=== PATIENT | male | born 1960 ===

== ENCOUNTER 2016-04-20 15:52 | Emergency (ER) | payer OTHER ==
[2016-04-20 16:02] VITALS: BP 149/89; PULSE 85; RESP 20; TEMP 98.2; O2SAT 100
--- NOTE | 2016-04-20 16:59 | ED PDOC ---
HPI: Male Pain Time Seen by Provider: 04/20/16 16:27 Chief Complaint (Nursing): Abdominal Pain Chief Complaint (Provider): urinary retention History Per: Patient History/Exam Limitations: no limitations Onset/Duration Of Symptoms: Days (5) Current Symptoms Are (Timing): Still Present Severity: Moderate Quality Of Discomfort: "Pain" Associated Symptoms: Urinary Symptoms. denies: Fever, Nausea, Vomiting, Diarrhea Additional History Per: Patient Additional Complaint(s): The pt is a 56yo male, presents to the ED for evaluation due to urinary retention. Pt reports he had a romano catheter placed while visiting this facility on 04/16/16. Pt reports he was sent home with a leg bag and instructions to follow up with a urologist. Pt reports he did not follow up due to a payment being required. Pt reports he went to the clinic today due to very little urine output over the past 24hrs. He states feeling distended again with associated back pain. Pt normal stool output and denies any fever, nausea, vomiting or diarrhea. Pt also denies presence of blood in his urine bag. Pt states he was instructed by clinic to present to the ED for further evaluation. At present, he offers no additional medical complaints. PMD: [facility] Past Medical History Reviewed: Historical Data, Nursing Documentation, Vital Signs Vital Signs: Last Vital Signs Temp 98.2 F 04/20/16 15:59 Pulse 85 04/20/16 15:59 Resp 20 04/20/16 15:59 BP 149/89 04/20/16 15:59 Pulse Ox 100 04/20/16 15:59 - Medical History PMH: No Chronic Diseases Denies: Chronic Kidney Disease - Surgical History Surgical History: No Surg Hx - Family History Family History: States: Unknown Family Hx - Living Arrangements Living Arrangements: With Family - Social History Current smoker - smoking cessation education provided: No Alcohol: None Drugs: Denies - Home Medications Home Medications: Ambulatory Orders Medication Instructions Recorded Ciprofloxacin HCl [Cipro] 250 mg PO BID #14 tab 04/20/16 Naproxen [Naprosyn] 1 tab PO BID PRN #60 tab 04/20/16 Tamsulosin [Flomax] 0.4 mg PO DAILY #30 cap 04/20/16 - Allergies Allergies/Adverse Reactions: Allergies Allergy/AdvReac Type Severity Reaction Status Date / Time No Known Allergies Allergy Verified 04/16/16 17:35 Review of Systems ROS Statement: Except As Marked, All Systems Reviewed And Found Negative Constitutional: Negative for: Fever Gastrointestinal: Positive for: Abdominal Pain (distention). Negative for: Nausea, Vomiting Genitourinary Male: Positive for: Other (urinary retention) Physical Exam - Reviewed Nursing Documentation Reviewed: Yes Vital Signs Reviewed: Yes - Physical Exam Appears: Positive for: Well, Non-toxic, No Acute Distress Head Exam: Positive for: ATRAUMATIC, NORMAL INSPECTION, NORMOCEPHALIC Skin: Positive for: Normal Color Eye Exam: Positive for: Normal appearance Neck: Positive for: Normal Cardiovascular/Chest: Positive for: Regular Rate, Rhythm Respiratory: Positive for: Normal Breath Sounds. Negative for: Respiratory Distress Gastrointestinal/Abdominal: Positive for: Normal Exam, Soft, Tenderness (mild tenderness to palpation of suprapubic region), Distended (soft distention) Male Genital Exam: Positive for: other (Romano bag in place. No lesions, erythema or exudate at the meatus. Appears to be sediment inside romano bag.) Back: Negative for: L CVA Tenderness, R CVA Tenderness Neurologic/Psych: Positive for: Alert, Oriented (x3) - ECG O2 Sat by Pulse Oximetry: 100 (RA) Pulse Ox Interpretation: Normal Medical Decision Making Medical Decision Making: Time: 1640 Impression: romano cath malfunction, urinary retention Plan: -- urine culture -- urine dip -- urinalysis --Reassess Scribe Attestation: Documented by Maile Thompson acting as a scribe for Elena Mendoza MD. Provider Attestation: All medical record entries made by the Scribe were at my direction and personally dictated by me. I have reviewed the chart and agree that the record accurately reflects my personal performance of the history, physical exam, medical decision making, and the department course for this patient. I have also personally directed, reviewed, and agree with the discharge instructions and disposition. Disposition - Clinical Impression Clinical Impression: Urinary retention - Disposition Referrals: Shayne Mccullough MD [Medical Doctor] - Gerald Eid MD [Medical Doctor] - Disposition: Routine/Home Disposition Time: 18:00 Condition: IMPROVED Prescriptions: Ciprofloxacin HCl [Cipro] 250 mg PO BID #14 tab Tamsulosin [Flomax] 0.4 mg PO DAILY #30 cap Naproxen [Naprosyn] 1 tab PO BID PRN #60 tab PRN Reason: Pain Instructions: Romano Catheter Placement and Care (ED), Urinary Leg Bag (GEN) Print Language: AZERI
[2016-04-20 18:06] LABS: RBC URINE 1184 /hpf (0-3); URINE BILIRUBIN NEGATIVE (NEGATIVE); URINE BLOOD LARGE (NEGATIVE); URINE COLOR YELLOW (YELLOW); URINE GLUCOSE (UA) NEG (Normal); URINE KETONE NEGATIVE (NEGATIVE); URINE LEUKOCYTE ESTERASE SMALL Leu/uL (Negative); URINE PROTEIN 100 mg/dL (NEGATIVE); URINE UROBILINOGEN 0.2-1.0 mg/dL (0.2-1.0); WBC URINE 11 /hpf (0-5)
[2016-04-20 18:09] LABS: URINE BACTERIA SMALL (<OCC)
== END 2016-04-20 18:25 | disposition home or self-care (01) ==
LOC: H.ER 15:52
DX: R33.9 Retention of urine, unspecified (principal); R10.9 Unspecified abdominal pain

== ENCOUNTER 2017-09-29 03:40 | Emergency (ER) | payer SELFPAY ==
[2017-09-29 03:59] VITALS: BP 135/83; RESP 18; TEMP 98.2
--- NOTE | 2017-09-29 04:06 | ED PDOC ---
HPI: Male Pain Time Seen by Provider: 09/29/17 04:04 Chief Complaint (Nursing): Male Genitourinary Chief Complaint (Provider): DIFFICULTY URINATING History Per: Patient (57 Y/O MALE HERE FOR EVALUATION OF DIFFICULTY URINATING. DENIES ANY FEVERS/CHILLS/HEMATURIA. UNABLE TO URINATE FOR 5 HOURS.) Past Medical History Reviewed: Historical Data, Nursing Documentation, Vital Signs Vital Signs: Last Vital Signs Temp 98.2 F 09/29/17 03:57 Pulse 112 H 09/29/17 03:57 Resp 18 09/29/17 03:57 BP 135/83 09/29/17 03:57 Pulse Ox 95 09/29/17 03:57 - Medical History PMH: Denies: Chronic Kidney Disease - Family History Family History: States: Unknown Family Hx - Home Medications Home Medications: Ambulatory Orders Medication Instructions Recorded Ciprofloxacin HCl [Cipro] 250 mg PO BID #14 tab 04/20/16 Naproxen [Naprosyn] 1 tab PO BID PRN #60 tab 04/20/16 Tamsulosin [Flomax] 0.4 mg PO DAILY #30 cap 04/20/16 Ciprofloxacin HCl [Cipro] 500 mg PO BID #14 tablet 09/29/17 Tamsulosin HCl [Flomax] 0.4 mg PO DAILY #7 cap.er.24h 09/29/17 - Allergies Allergies/Adverse Reactions: Allergies Allergy/AdvReac Type Severity Reaction Status Date / Time No Known Allergies Allergy Verified 04/16/16 17:35 Review of Systems ROS Statement: Except As Marked, All Systems Reviewed And Found Negative Physical Exam - Reviewed Nursing Documentation Reviewed: Yes Vital Signs Reviewed: Yes - Physical Exam Appears: Positive for: Well, Non-toxic, No Acute Distress Head Exam: Positive for: ATRAUMATIC, NORMAL INSPECTION, NORMOCEPHALIC Skin: Positive for: Normal Color, Warm, DRY Eye Exam: Positive for: EOMI, Normal appearance, PERRL ENT: Positive for: Normal ENT Inspection Neck: Positive for: Normal, Painless ROM Cardiovascular/Chest: Positive for: Regular Rate, Rhythm Respiratory: Positive for: CNT, Normal Breath Sounds Gastrointestinal/Abdominal: Positive for: Normal Exam, Soft Back: Positive for: Normal Inspection Extremity: Positive for: Normal ROM Neurologic/Psych: Positive for: Alert, Oriented - Laboratory Results Urine dip results: Positive for: Blood. Negative for: Leukocyte Esterase, Nitrate, Ketones, Glucose, Bilirubin - ECG O2 Sat by Pulse Oximetry: 95 - Progress ED Course And Treament: VERBAL CONSENT OBTAINED PRIOR TO NETTLES CATHETER PLACEMENT. 1000 CC URINE INITIALLY FROM PLACEMENT OF CATHETER. Disposition - Clinical Impression Clinical Impression: Urinary retention - Patient ED Disposition Is Patient to be Admitted: Yes - Disposition Referrals: Irving Romero MD [Medical Doctor] - Disposition: Routine/Home Disposition Time: 04:40 Condition: FAIR Prescriptions: Ciprofloxacin HCl [Cipro] 500 mg PO BID #14 tablet Tamsulosin HCl [Flomax] 0.4 mg PO DAILY #7 cap.er.24h Instructions: Urinary Retention (DC) Forms: [facility] (Vietnamese) Print Language: GHANAIAN
[2017-09-29 04:59] LABS: URINE BACTERIA RARE (<OCC); URINE BILIRUBIN NEGATIVE (NEGATIVE); URINE BLOOD LARGE (NEGATIVE); URINE CLARITY CLEAR (Clear); URINE COLOR STRAW (YELLOW); URINE GLUCOSE (UA) NEG (Normal); URINE LEUKOCYTE ESTERASE NEG Leu/uL (Negative); URINE PROTEIN NEGATIVE (NEGATIVE); URINE UROBILINOGEN 0.2-1.0 mg/dL (0.2-1.0)
[2017-09-29 05:12] VITALS: PULSE 97; O2SAT 98
== END 2017-09-29 05:33 | disposition home or self-care (01) ==
LOC: H.ER 03:40
DX: R33.9 Retention of urine, unspecified (principal)

== ENCOUNTER 2017-11-07 02:04 | Emergency (ER) | payer MEDICAID ==
[2017-11-07 02:14] VITALS: RESP 18
--- NOTE | 2017-11-07 03:46 | ED PDOC ---
HPI: Male Pain Time Seen by Provider: 11/07/17 02:15 Chief Complaint (Nursing): Male Genitourinary Chief Complaint (Provider): Male Genitourinary History Per: Patient History/Exam Limitations: no limitations Onset/Duration Of Symptoms: Hrs Current Symptoms Are (Timing): Still Present Additional Complaint(s): Rob Crisostomo is a 57 year old male with a past medical history of prostatic hypertrophy who is presenting to the ED for evaluation of urinary retention. Patient was seen in the ED yesterday for the same complaint but didnt want indwelling Wren catheter. He states that he went home and has not passed any urine in the last 10 hours associated with suprapubic pain. Patient offers no other medical complaints at this time. PMD: none provided Past Medical History Reviewed: Historical Data, Nursing Documentation, Vital Signs Vital Signs: Last Vital Signs Temp 98.3 F 11/07/17 02:10 Pulse 111 H 11/07/17 02:10 Resp 18 11/07/17 02:10 BP 164/100 H 11/07/17 02:10 Pulse Ox 98 11/07/17 02:10 - Medical History PMH: Denies: Chronic Kidney Disease Other PMH: BPH - Surgical History Surgical History: No Surg Hx - Family History Family History: States: Unknown Family Hx - Social History Current smoker - smoking cessation education provided: Yes Alcohol: Social Drugs: Denies - Home Medications Home Medications: Ambulatory Orders Medication Instructions Recorded Ciprofloxacin HCl [Cipro] 250 mg PO BID #14 tab 04/20/16 RX: Naproxen [Naprosyn] 1 tab PO BID PRN #60 tab 04/20/16 Tamsulosin [Flomax] 0.4 mg PO DAILY #30 cap 04/20/16 Ciprofloxacin HCl [Cipro] 500 mg PO BID #14 tablet 09/29/17 Tamsulosin HCl [Flomax] 0.4 mg PO DAILY #7 cap.er.24h 09/29/17 - Allergies Allergies/Adverse Reactions: Allergies Allergy/AdvReac Type Severity Reaction Status Date / Time No Known Allergies Allergy Verified 04/16/16 17:35 Review of Systems ROS Statement: Except As Marked, All Systems Reviewed And Found Negative Gastrointestinal: Positive for: Abdominal Pain Genitourinary Male: Positive for: Other (urinary retention) Physical Exam - Reviewed Nursing Documentation Reviewed: Yes Vital Signs Reviewed: Yes - Physical Exam Appears: Positive for: Non-toxic, No Acute Distress Head Exam: Positive for: ATRAUMATIC, NORMAL INSPECTION, NORMOCEPHALIC Skin: Positive for: Normal Color, Warm, DRY Eye Exam: Positive for: EOMI, Normal appearance, PERRL ENT: Positive for: Normal ENT Inspection Neck: Positive for: Normal, Painless ROM Cardiovascular/Chest: Positive for: Regular Rate, Rhythm. Negative for: Murmur Respiratory: Positive for: Normal Breath Sounds. Negative for: Respiratory Distress Gastrointestinal/Abdominal: Positive for: Soft, Tenderness (suprapubic ), Distended Back: Positive for: Normal Inspection Extremity: Positive for: Normal ROM. Negative for: Deformity, Swelling Neurologic/Psych: Positive for: Alert, Oriented. Negative for: Motor/Sensory Deficits - ECG O2 Sat by Pulse Oximetry: 98 (RA) Pulse Ox Interpretation: Normal Medical Decision Making Medical Decision Making: Time: 2:15 A/P: 57 year old male with urinary retention secondary to BPH 3:40 Patient reports that he feels a lot better with improvement in symptoms after Wren catheter placement. Advised follow up with Dr. Romero. Scribe Attestation: Documented by Raina Prince, acting as a scribe for Yousuf Altamirano MD. Provider Scribe Attestation: All medical record entries made by the Scribe were at my direction and personally dictated by me. I have reviewed the chart and agree that the record accurately reflects my personal performance of the history, physical exam, medical decision making, and the department course for this patient. I have also personally directed, reviewed, and agree with the discharge instructions and disposition. Disposition - Clinical Impression Clinical Impression: Urinary retention - Disposition Referrals: Irving Romero MD [Medical Doctor] - Disposition: Routine/Home Disposition Time: 04:00 Condition: STABLE Instructions: Wren Catheter, Male Forms: [employer] (Mexican)
[2017-11-07 04:03] VITALS: BP 127/79; PULSE 83; TEMP 97.7
[2017-11-10 21:35] VITALS: O2SAT 98
== END 2017-11-07 04:06 | disposition home or self-care (01) ==
LOC: H.ER 02:04
DX: R33.8 Other retention of urine (principal)

== ENCOUNTER 2017-11-25 04:50 | Emergency (ER) | payer MEDICAID ==
--- NOTE | 2017-11-25 05:34 | ED PDOC ---
HPI: Male Pain Time Seen by Provider: 11/25/17 05:04 Chief Complaint (Nursing): Male Genitourinary Chief Complaint (Provider): needs new romano bag History Per: Patient (57 y/o male here requesting new romano catheter bag. Patient was seen in ED 11/07/2017 for urinary retention and had romano catheter placed at that time.) Past Medical History Reviewed: Historical Data, Nursing Documentation, Vital Signs Vital Signs: Last Vital Signs Temp 98.6 F 11/25/17 04:58 Pulse 80 11/25/17 04:58 Resp 20 11/25/17 04:58 BP 124/87 11/25/17 04:58 Pulse Ox 99 11/25/17 04:58 - Medical History PMH: Denies: Chronic Kidney Disease - Family History Family History: States: No Known Family Hx - Home Medications Home Medications: Ambulatory Orders Medication Instructions Recorded Tamsulosin HCl [Flomax] 0.4 mg PO DAILY #7 cap.er.24h 11/25/17 - Allergies Allergies/Adverse Reactions: Allergies Allergy/AdvReac Type Severity Reaction Status Date / Time No Known Allergies Allergy Verified 11/25/17 04:58 Review of Systems ROS Statement: Except As Marked, All Systems Reviewed And Found Negative Physical Exam - Reviewed Nursing Documentation Reviewed: Yes Vital Signs Reviewed: Yes - Physical Exam Appears: Positive for: Well, Non-toxic, No Acute Distress Head Exam: Positive for: ATRAUMATIC, NORMAL INSPECTION, NORMOCEPHALIC Skin: Positive for: Normal Color, Warm, DRY Eye Exam: Positive for: EOMI, Normal appearance, PERRL ENT: Positive for: Normal ENT Inspection Neck: Positive for: Normal, Painless ROM Cardiovascular/Chest: Positive for: Regular Rate, Rhythm Respiratory: Positive for: CNT, Normal Breath Sounds Gastrointestinal/Abdominal: Positive for: Normal Exam, Soft Back: Positive for: Normal Inspection Extremity: Positive for: Normal ROM Neurologic/Psych: Positive for: Alert, Oriented - ECG O2 Sat by Pulse Oximetry: 99 - Progress ED Course And Treament: Old records reviewed. Donato was advised to f/u with Dr. Romero in last ED visit. Disposition - Clinical Impression Clinical Impression: Romano catheter problem - Patient ED Disposition Is Patient to be Admitted: No - Disposition Referrals: Irving Romero MD [Medical Doctor] - Disposition: Routine/Home Disposition Time: 05:37 Condition: FAIR Prescriptions: Tamsulosin HCl [Flomax] 0.4 mg PO DAILY #7 cap.er.24h Instructions: How to Care for Your Romano Catheter, Male Print Language: ENGLISH
[2017-11-25 05:57] VITALS: BP 122/78; PULSE 78; RESP 18; TEMP 98.1; O2SAT 97
== END 2017-11-25 05:48 | disposition home or self-care (01) ==
LOC: H.ER 04:50 → MERGE 04:50 → H.ER 05:48
DX: T83.098A Other mechanical complication of other urinary catheter, initial encounter (principal)

== ENCOUNTER 2017-12-14 08:25 | Emergency (ER) | payer MEDICAID, SELFPAY ==
[2017-12-14 08:37] VITALS: O2SAT 97
[2017-12-14 08:38] VITALS: BMI 23.7
--- NOTE | 2017-12-14 08:56 | ED PDOC ---
HPI: General Adult Time Seen by Provider: 12/14/17 08:33 Chief Complaint (Nursing): Male Genitourinary Chief Complaint (Provider): Catheter dysfunction History Per: Patient History/Exam Limitations: no limitations Onset/Duration Of Symptoms: Days Current Symptoms Are (Timing): Still Present Recently: Treated By A Physician Additional Complaint(s): 57 y/o male with PMHx of enlarged prostate presents to the ED complaining his "leg bag has been leaking" for 1 week. He tried to tape it, but now presents requesting the bag be changed. Patient admits indwelling romano was placed 3.5 months ago, and he has not been following up with a urologist. Requesting referral to urology that accepts [facility]. Otherwise he denies any fevers, chills, or other complaints. PMD: the clinic Past Medical History Reviewed: Historical Data, Nursing Documentation, Vital Signs Vital Signs: Last Vital Signs Temp 97 F L 12/14/17 08:36 Pulse 86 12/14/17 08:36 Resp BP 135/88 12/14/17 08:36 Pulse Ox 97 12/14/17 08:36 - Medical History PMH: Denies: Chronic Kidney Disease Other PMH: Enlarged prostate - Surgical History Surgical History: No Surg Hx - Family History Family History: States: Unknown Family Hx - Social History Current smoker - smoking cessation education provided: Yes Alcohol: Social Drugs: Denies - Home Medications Home Medications: Ambulatory Orders Medication Instructions Recorded Ciprofloxacin HCl [Cipro] 250 mg PO BID #14 tab 04/20/16 Naproxen [Naprosyn] 1 tab PO BID PRN #60 tab 04/20/16 Tamsulosin [Flomax] 0.4 mg PO DAILY #30 cap 04/20/16 Ciprofloxacin HCl [Cipro] 500 mg PO BID #14 tablet 09/29/17 Tamsulosin HCl [Flomax] 0.4 mg PO DAILY #7 cap.er.24h 09/29/17 Tamsulosin HCl [Flomax] 0.4 mg PO DAILY #7 cap.er.24h 11/25/17 Ciprofloxacin HCl [Cipro] 250 mg PO BID #14 tab 12/14/17 Tamsulosin [Flomax] 0.4 mg PO DAILY #21 cap 12/14/17 - Allergies Allergies/Adverse Reactions: Allergies Allergy/AdvReac Type Severity Reaction Status Date / Time No Known Allergies Allergy Verified 11/26/17 08:29 Review of Systems ROS Statement: Except As Marked, All Systems Reviewed And Found Negative Constitutional: Negative for: Fever, Chills Genitourinary Male: Positive for: Other (leg bag leaking) Physical Exam - Reviewed Nursing Documentation Reviewed: Yes Vital Signs Reviewed: Yes - Physical Exam Appears: Positive for: Well, Non-toxic, No Acute Distress Head Exam: Positive for: ATRAUMATIC, NORMOCEPHALIC Skin: Positive for: Normal Color, Warm Eye Exam: Positive for: Normal appearance Neck: Positive for: Painless ROM, Supple Respiratory: Negative for: Accessory Muscle Use, Respiratory Distress Extremity: Positive for: Normal ROM Neurologic/Psych: Positive for: Alert, Oriented (x3), Gait (steady) - ECG O2 Sat by Pulse Oximetry: 97 (RA) Pulse Ox Interpretation: Normal Medical Decision Making Medical Decision Making: Time: 8:57 Initial Impression: Leg bag change, r/o UTI Plan: Bag replaced in the ED, as requested. Patient provided with referral, given lead c developer number. Instructed to follow up with urology without fail. ----- Scribe Attestation: Documented by Juana Pressley, acting as a scribe for Dr. Lolly Johnson MD. Provider Scribe Attestation: All medical record entries made by the Scribe were at my direction and personally dictated by me. I have reviewed the chart and agree that the record accurately reflects my personal performance of the history, physical exam, medical decision making, and the department course for this patient. I have also personally directed, reviewed, and agree with the discharge instructions and disposition. Disposition - Clinical Impression Clinical Impression: Romano catheter problem - Patient ED Disposition Is Patient to be Admitted: No Doctor Will See Patient In The: Office Counseled Patient/Family Regarding: Diagnosis, Need For Followup, Rx Given - Disposition Referrals: [facility] [Outside] [email or web address] [Outside] [facility] [Outside] Disposition: Routine/Home Disposition Time: 09:15 Condition: STABLE Prescriptions: Ciprofloxacin HCl [Cipro] 250 mg PO BID #14 tab Tamsulosin [Flomax] 0.4 mg PO DAILY #21 cap Instructions: How to Care for Your Romano Catheter, Male Forms: [employer] (French) Print Language: FRENCH - POA Present On Arrival: None
[2017-12-14 09:53] VITALS: BP 130/80; PULSE 83; RESP 18; TEMP 97.6
== END 2017-12-14 09:45 | disposition home or self-care (01) ==
LOC: H.ER 08:25
DX: T83.098A Other mechanical complication of other urinary catheter, initial encounter (principal); N40.0 Benign prostatic hyperplasia without lower urinary tract symptoms

== ENCOUNTER 2018-01-11 09:15 | Emergency (ER) | payer SELFPAY ==
[2018-01-11 09:36] VITALS: BMI 24.1
[2018-01-11 09:37] VITALS: BP 125/75; PULSE 89; RESP 20; TEMP 98; O2SAT 97
--- NOTE | 2018-01-11 10:43 | ED PDOC ---
HPI: General Adult Additional Complaint(s): 57 y/o male with PMHx of enlarged prostate presents to the ED complaining his "leg bag has been leaking" for 1 week. He presents requesting the bag be changed. Patient admits indwelling wren was placed 4 months ago, and he has not been following up with a urologist, reports has appt on February next year. Otherwise he denies any fevers, chills, or other complaints. PMD: [facility] <Bryant Villar - Last Filed: 01/11/18 10:59> <Lolly Johnson - Last Filed: 01/11/18 11:11> Time Seen by Provider: 01/11/18 09:46 Chief Complaint (Nursing): Med Refill Supervising Attending Note - Supervising Attending Note The Documented history was done by the: Physician Metal Sprayer [employer]ating The documented physical exam was done by the: Physician Metal Sprayer Protective Coating The documented procedures were done by the: Physician Metal Sprayer Protective Coating - Attestation: I have personally seen and examined this patient.: Yes I have fully participated in the care of the patient.: Yes I have reviewed all pertinent clinical information, including history, physical exam and plan: Yes <Lolly Johnson - Last Filed: 01/11/18 11:11> Past Medical History Vital Signs: Last Vital Signs Temp 98 F 01/11/18 09:36 Pulse 89 01/11/18 09:36 Resp 20 01/11/18 09:36 BP 125/75 01/11/18 09:36 Pulse Ox 97 01/11/18 09:36 - Medical History PMH: Benign Prostatic Hyperplasia Denies: Chronic Kidney Disease - Surgical History Surgical History: No Surg Hx - Family History Family History: States: Unknown Family Hx - Social History Current smoker - smoking cessation education provided: No Alcohol: None Drugs: Denies <Bryant Villar - Last Filed: 01/11/18 10:59> Vital Signs: Last Vital Signs Temp 98 F 01/11/18 09:36 Pulse 89 01/11/18 09:36 Resp 20 01/11/18 09:36 BP 125/75 01/11/18 09:36 Pulse Ox 97 01/11/18 10:59 <Lolly Johnson - Last Filed: 01/11/18 11:11> - Home Medications Home Medications: Ambulatory Orders Medication Instructions Recorded Ciprofloxacin HCl [Cipro] 250 mg PO BID #14 tab 04/20/16 Naproxen [Naprosyn] 1 tab PO BID PRN #60 tab 04/20/16 Tamsulosin [Flomax] 0.4 mg PO DAILY #30 cap 04/20/16 Ciprofloxacin HCl [Cipro] 500 mg PO BID #14 tablet 09/29/17 Tamsulosin HCl [Flomax] 0.4 mg PO DAILY #7 cap.er.24h 09/29/17 Tamsulosin HCl [Flomax] 0.4 mg PO DAILY #7 cap.er.24h 11/25/17 Ciprofloxacin HCl [Cipro] 250 mg PO BID #14 tab 12/14/17 Tamsulosin [Flomax] 0.4 mg PO DAILY #21 cap 12/14/17 Ciprofloxacin HCl [Cipro] 500 mg PO Q12H 30 Days #60 tab 01/11/18 Tamsulosin HCl [Flomax] 0.4 mg PO DAILY 30 Days #30 01/11/18 cap.er.24h - Allergies Allergies/Adverse Reactions: Allergies Allergy/AdvReac Type Severity Reaction Status Date / Time No Known Allergies Allergy Verified 11/26/17 08:29 Review of Systems ROS Statement: Except As Marked, All Systems Reviewed And Found Negative (HPI) <Bryant Villar - Last Filed: 01/11/18 10:59> Physical Exam - Reviewed Vital Signs Reviewed: Yes - Physical Exam Appears: Positive for: No Acute Distress Cardiovascular/Chest: Positive for: Regular Rate, Rhythm. Negative for: Tachycardia Respiratory: Positive for: Normal Breath Sounds. Negative for: Wheezing Gastrointestinal/Abdominal: Positive for: Soft, Tenderness. Negative for: Distended Neurologic/Psych: Positive for: Alert, airline station agent II-X[employer], Oriented <Bryant Villar - Last Filed: 01/11/18 10:59> - ECG O2 Sat by Pulse Oximetry: 97 - Progress ED Course And Treament: Initial Impression: Wren bag problem, r/o UTI Plan: Bag replaced in the ED, as requested. Instructed to follow up with urology on scheduled appt <Bryant Villar - Last Filed: 01/11/18 10:59> Disposition - Patient ED Disposition Is Patient to be Admitted: No - Disposition Disposition: Routine/Home Disposition Time: 10:41 <Bryant Villar - Last Filed: 01/11/18 10:59> <Lolly Johnson - Last Filed: 01/11/18 11:11> - Clinical Impression Clinical Impression: Wren catheter in place, Wren catheter problem - Disposition Referrals: [facility] [Outside] Condition: STABLE Prescriptions: Ciprofloxacin HCl [Cipro] 500 mg PO Q12H 30 Days #60 tab Tamsulosin HCl [Flomax] 0.4 mg PO DAILY 30 Days #30 cap.er.24h Instructions: Wren Catheter, Male Forms: [facility] (Surinamese)
== END 2018-01-11 11:22 | disposition short-term general hospital (02) ==
LOC: H.ER 09:15
DX: Z46.6 Encounter for fitting and adjustment of urinary device (principal)